=== PATIENT | female | born 2000 | race Hispanic/Latino ===

== ENCOUNTER 2023-04-20 02:00 | Emergency (ER) | payer OTHER, SELFPAY ==
[2023-04-20] MEDS ORDERED: Lidocaine 1% MPF 2 ML VIAL ONE (03:18)
[2023-04-20] MEDS ORDERED: cefTRIAXone (ROCEPHIN) 500 MG VIAL ONE (03:18)
== END 2023-04-20 03:25 | disposition home or self-care (01) ==
LOC: CSHERS 02:00
DX: A54.9 Gonococcal infection, unspecified (principal); F17.290 Nicotine dependence, other tobacco product, uncomplicated
CPT/HCPCS: 96372; 99283; J0696